=== PATIENT | female | born 1960 ===

== ENCOUNTER → 2021-02-21 15:15 | Outpatient (CLI) | payer BC, SELFPAY ==
--- NOTE | ~2021-02-21 | MR_ITS ---
EXAMINATION: MR cervical spine wo con DATE: 02/21/2021 16:05 INDICATION: Neck pain. TECHNIQUE: Magnetic resonance imaging (MRI) of the cervical spine was performed without intravenous c ontrast. Sequences included sagittal T2-weighted FSE, sagittal STIR FSE, sagittal T1-weighted FSE, ax ial MERGE, and axial T2-weighted FSE. COMPARISON: None FINDINGS: Bone alignment is normal. Vertebral body heights are normal. There are changes of anterior fusion procedure at C5-C6 with healed interbody bone graft and anterior plate and screws. There is mi ldly decreased disc height at C4-C5 and C6-C7. There is a hemangioma in T2 vertebral body. There is s yringohydromyelia from C5 to the thoracic spine with maximum diameter of 1 mm. The following disc lev els are specifically discussed: C2-C3: The disc does not extend beyond the endplate margin. There is no uncovertebral joint osteoarth ritis. There is severe bilateral facet joint osteoarthritis. There is mild bilateral neural foraminal stenosis. There is no central canal stenosis. C3-C4: The disc does not extend beyond the endplate margin. There is no uncovertebral joint osteoarth ritis. There is severe bilateral facet joint osteoarthritis. There is moderate bilateral neural trey inal stenosis. There is no central canal stenosis. C4-C5: There is a left central extrusion. There is mild bilateral uncovertebral joint osteoarthritis. There is severe bilateral facet joint osteoarthritis. There is mild bilateral neural foraminal steno sis. There is mild central canal stenosis with ventral indentation of the spinal cord. C5-C6: There is no uncovertebral joint hypertrophy. There is no facet joint hypertrophy. There is no neural foraminal stenosis. There is no central canal stenosis. C6-C7: The disc is bulging. There is mild bilateral uncovertebral joint osteoarthritis. There is derik re left facet joint osteoarthritis. There is mild bilateral neural foraminal stenosis. There is mild central canal stenosis. C7-T1: The disc does not extend beyond the endplate margin. There is no uncovertebral joint osteoarth ritis. There is severe bilateral facet joint osteoarthritis. There is mild bilateral neural foraminal stenosis. There is no central canal stenosis. IMPRESSION: 1. Moderate cervical spondylosis. 2. 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 3. Anterior fusion procedure at C5-C6. Reviewed, dictated and finalized at location A. IMPRESSION: 1. Moderate cervical spondylosis. 2. 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 3. Anterior fusion procedure at C5-C6.
--- NOTE | ~2021-02-21 | MR_ITS ---
EXAMINATION: MR lumbar spine wo con DATE: 02/21/2021 16:09 INDICATION: Low back pain. TECHNIQUE: Magnetic resonance imaging (MRI) of the lumbar spine was performed without intravenous con trast. Sequences included sagittal T2-weighted FSE, sagittal T2-weighted FS FSE, sagittal T1-weighted FSE, and axial T2-weighted FSE. COMPARISON: None FINDINGS: There is 3 mm anterolisthesis of L4 on L5. Vertebral body heights are normal. There is mild ly decreased disc height at T12-L1 and L1-L2 and mildly decreased disc height at L2-L3, L3-L4, and L4 -L5. There is syringohydromyelia in the spinal cord with maximum diameter of 1 mm. The conus medullar is is at L2. The following disc levels are specifically discussed: L1-L2: The disc is bulging and has an annular fissure. There is severe bilateral facet joint osteoart hritis. There is mild bilateral neural foraminal stenosis. There is mild central canal stenosis. L2-L3: The disc is bulging. There is severe bilateral facet joint osteoarthritis. There is mild bilat eral neural foraminal stenosis. There is mild central canal stenosis. L3-L4: The disc is bulging. There is severe bilateral facet joint osteoarthritis. There is a 7 mm syn ovial cyst in the central canal at the posterior midline. There is mild bilateral neural foraminal st enosis. There is mild central canal stenosis. L4-L5: The disc does not extend beyond the endplate margin. There is severe bilateral facet joint ost eoarthritis. There is moderate right and mild left neural foraminal stenosis. There is no central can al stenosis. L5-S1: The disc does not extend beyond the endplate margin. There is severe bilateral facet joint ost eoarthritis. There is mild bilateral neural foraminal stenosis. There is no central canal stenosis. IMPRESSION: 1. Moderate thoracolumbar spondylosis. 2. 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 Reviewed, dictated and finalized at location A.
== END ==
PROVIDERS: Visit Provider Internal Medicine
DX: M54.2 Cervicalgia (principal); M54.5 Low back pain; M47.812 Spondylosis without myelopathy or radiculopathy, cervical region; Q05.5 Cervical spina bifida without hydrocephalus; Z98.1 Arthrodesis status; M47.815 Spondylosis without myelopathy or radiculopathy, thoracolumbar region
CPT/HCPCS: 72141; 72148